=== PATIENT | female | born 1955 | race Caucasian/White ===

== ENCOUNTER → 2023-09-07 09:48 | Outpatient (REF) | payer MEDICARE, OTHER, SELFPAY | LOC: HWWDC 09:48 | PROVIDERS: ATTENDING PHYSICIAN Nurse Practitioner | DX: Z12.31 Encounter for screening mammogram for malignant neoplasm of breast (principal) | CPT/HCPCS: 77063; 77067 ==

== ENCOUNTER 2024-01-03 20:35 | Inpatient (IN) | payer MEDICARE, OTHER, SELFPAY ==
[2024-01-03] VITALS (7 sets, daily range): BP systolic 126–176; BP diastolic 58–84; BMI 30.4; BMI 30.3
[2024-01-03 18:12] LABS: % Basophils 0.2 % (0-2); % Eosinophils 0.7 % (0-6); % Immature Granulocytes 0.3 % (0-0.5); % Lymphocytes 17.3 % (20.5-51.1); % Monocytes 6.6 % (1.7-9.3); % Neutrophils 74.9 % (42.2-75.2); Absolute Eosinophils 0.1 10^3/uL (0-0.7); Absolute Lymphocytes 1.5 10^3/uL (1.2-3.4); Absolute Monocytes 0.6 10^3/uL (0.1-0.6); Absolute Neutrophils 6.4 10^3/uL (1.4-6.5); Hematocrit 34.3 % (37.0-47.0); Hemoglobin 11.7 g/dL (12.0-16.0); Mean Corp Hgb Conc. 34.1 g/dL (33.0-37.0); Mean Corpuscular Hgb 31.2 pg (27.0-31.0); Mean Corpuscular Volume 91.5 fL (81.0-99.0); Mean Platelet Volume 8.5 fL (7.4-10.4); Nucleated Red Blood Cells % 0 %; Platelet Count 285 10^3/uL (130-400); Red Blood Cell Count 3.75 10^6/uL (4.20-5.40); White Blood Cell Count 8.6 10^3/uL (4.8-10.8)
--- NOTE | 2024-01-03 19:19 | ED.GENMED ---
History of Present Illness
<Mamie Dc PA-C - Last Filed: 01/04/24 00:46>
General
Chief Complaint: Abnormal Lab Value
Source: patient
Exam Limitations: none
Time Seen by Provider: 01/03/24 18:50
Nursing documentation reviewed up to this point in time: agreed with
History of Present Illness
History of Present Illness:
Patient is a 68-year-old female presenting to the emergency department for evaluation of abnormal CT scan results in setting of 4 days left lower quadrant abdominal pain. Patient reports 4 days of lower abdominal discomfort. She also noticed some
darker urine and initially thought symptoms may be related to her urinary tract infection. Patient was started on ciprofloxacin by her primary care provider as the urine culture is pending. She has noted some loose stools, as well. Patient denies
any true dysuria, urinary frequency, or hematuria.
Patient denies any known fevers although has felt chilly. She describes a pressure type pain in her lower abdomen, worse on the left side. No nausea or vomiting. Patient was seen by her primary care provider who ordered an outpatient CT scan. CT
scan was performed today and patient was called regarding results telling her to come to the emergency department
Patient denies any prior diverticulitis in the past.
Patient denies any known drug allergies.
Review of Systems
<Mamie Dc PA-C - Last Filed: 01/04/24 00:46>
Review of Systems
Allergies reviewed?: Yes
All Other Systems: ROS reviewed and negative except as documented in HPI and ROS
Phy Exam
<Mamie Dc PA-C - Last Filed: 01/04/24 00:46>
Physical Exam
Physical Exam:
Vitals: Patient's vital signs are stable. Temp of 90 9.7F
General: Patient is in no acute distress. Nontoxic-appearing
Skin: Warm and dry, no rashes or lesions
Head: Normocephalic, atraumatic
Eyes: Sclera nonicteric. EOMs intact. No nystagmus.
Throat: Protecting airway
Neck: Normal ROM, no cervical spine tenderness, no meningismus
Cardiac: Regular rate and rhythm, no murmurs.
Pulm: Normal respiratory effort, no wheezes, rales, rhonchi heard on exam.
Abdomen: Abdomen soft. Moderate tenderness in right lower quadrant with voluntary guarding. No CVA tenderness
Extremities: No evidence of cyanosis or edema. Great distal pulses
Neuro: AAOx3. CN II-XII intact. No focal neurologic deficits.
Psychiatric: Normal affect.
Course
<Mamie Dc PA-C - Last Filed: 01/04/24 00:46>
Orders/Labs/Results
Orders:
Orders
01/03/24 18:01
CBC/With Diff [Complete Blood Count/With Diff] Urgent
01/03/24 19:20
Ketorolac [Toradol] 15 mg IV NOW STA
Piperacillin/Tazo 3.375 Gram [Zosyn] 3.375 gram in 50 ml IV NOW
01/03/24 19:40
Urinalysis Reflex To Culture Urgent
Date Specimen was Collected: 01/03/24
Time Specimen was Collected: 19:38
01/03/24 20:07
Admit/Transfer Patient As Directed
Co-Sign Provider:
Level of Care: Inpatient admission
Assign to:: Medical/Surgical
Physician / Group: roya
Diagnosis: diverticulitis
Reason for Hospitalization: diverticulitis
Expected length of stay greater than two midnights?: Yes
ELOS- Estimated Length of Stay in days: 3
I certify the patient meets the requirements for IP care: Yes
Code Status As Directed
Resuscitation Status: Full Code
PRN Pain Medication Management As Directed
May give lesser potent ordered pain med per pt: Yes
preference::
Protocol:: Medication orders for pain may be administered in a
manner that supports deferring to patient preference
when the pt is:
- Requesting an ordered lesser potent pain medication.
Least to most potent pain medications are defined
as: acetaminophen < NSAID < tramadol < opioids
(morphine, oxycodone, hydromorphone).
- Requesting a lesser dose of the same medication IF
ORDERED.
- Requesting a less intrusive route of administration
if both routes are prescribed by the provider (PO <
IV).
01/03/24 21:23
0.9% Sodium Chloride 1000 ml [Nss] 1,000 ml IV 80 mls/hr
Acetaminophen [Tylenol] 650 mg PO Q4HPRN PRN
Bisacodyl [Dulcolax] 10 mg RECTAL [id number] PRN
Docusate W/Senna [Senokot-S] 1 tablet PO BIDPRN PRN
HYDROmorphone [Dilaudid] 0.5 mg IV Q4HPRN PRN
Polyethylene Glycol Powder [Miralax] 17 grams PO DAILYPRN PRN
01/03/24 21:23
ColoRectal Surgery Consult Routine
Consulting Provider: Reynaldo Rolon
Was physician already notified: Yes
Activity As Directed
Activity Level: As Tolerated
Venous Foot Pumps As Directed
Location: Bilateral feet
Vital Signs As Directed
Frequency: Per unit guidelines
DX Deep Vein Thrombosis Video Routine
01/04/24 02:00
Piperacillin/Tazo 3.375 Gram [Zosyn] 3.375 gram in 50 ml IV Q6H
01/04/24 Breakfast
NPO
Allow oral meds: Yes
Allow clear liquids: No
Basic Metabolic Panel IN AM
Complete Blood Count/No Diff IN AM
01/05/24 06:00
Basic Metabolic Panel IN AM
Complete Blood Count/No Diff IN AM
01/06/24 06:00
Basic Metabolic Panel IN AM
Complete Blood Count/No Diff IN AM
01/07/24 06:00
Basic Metabolic Panel IN AM
Complete Blood Count/No Diff IN AM
01/08/24 06:00
Basic Metabolic Panel IN AM
Complete Blood Count/No Diff IN AM
Abnormal Lab Results
01/03/24 01/03/24
18:01 19:40
RBC 3.75 L 10^6/uL
(4.20-5.40)
Hgb 11.7 L g/dL
(12.0-16.0)
Hct 34.3 L %
(37.0-47.0)
MCH 31.2 H pg
(27.0-31.0)
Lymphocytes % 17.3 L %
(20.5-51.1)
Urine Ketones Trace A
(Negative)
01/03/24 18:01
Vital Signs
Initial and Last Documented VS:
Initial Vital Signs
Temp Pulse Resp BP Pulse Ox
99.7 F 86 18 176/84 96
01/03/24 17:51 01/03/24 17:51 01/03/24 17:51 01/03/24 17:51 01/03/24 17:51
Last Documented Vital Signs
Temp Pulse Resp BP Pulse Ox
98.3 F 69 16 126/58 94
01/03/24 23:30 01/03/24 23:30 01/03/24 23:30 01/03/24 23:30 01/03/24 23:30
<Rangel Simon MD - Last Filed: 01/03/24 20:11>
Orders/Labs/Results
Orders:
Orders
01/03/24 18:01
CBC/With Diff [Complete Blood Count/With Diff] Urgent
01/03/24 19:20
Ketorolac [Toradol] 15 mg IV NOW STA
Piperacillin/Tazo 3.375 Gram [Zosyn] 3.375 gram in 50 ml IV NOW
01/03/24 19:40
Urinalysis Reflex To Culture Urgent
Date Specimen was Collected: 01/03/24
Time Specimen was Collected: 19:38
01/03/24 20:07
Admit/Transfer Patient As Directed
Co-Sign Provider:
Level of Care: Inpatient admission
Assign to:: Medical/Surgical
Physician / Group: roya
Diagnosis: diverticulitis
Reason for Hospitalization: diverticulitis
Expected length of stay greater than two midnights?: Yes
ELOS- Estimated Length of Stay in days: 3
I certify the patient meets the requirements for IP care: Yes
Code Status As Directed
Resuscitation Status: Full Code
PRN Pain Medication Management As Directed
May give lesser potent ordered pain med per pt: Yes
preference::
Protocol:: Medication orders for pain may be administered in a
manner that supports deferring to patient preference
when the pt is:
- Requesting an ordered lesser potent pain medication.
Least to most potent pain medications are defined
as: acetaminophen < NSAID < tramadol < opioids
(morphine, oxycodone, hydromorphone).
- Requesting a lesser dose of the same medication IF
ORDERED.
- Requesting a less intrusive route of administration
if both routes are prescribed by the provider (PO <
IV).
01/03/24 21:23
0.9% Sodium Chloride 1000 ml [Nss] 1,000 ml IV 80 mls/hr
Acetaminophen [Tylenol] 650 mg PO Q4HPRN PRN
Bisacodyl [Dulcolax] 10 mg RECTAL [id number] PRN
Docusate W/Senna [Senokot-S] 1 tablet PO BIDPRN PRN
HYDROmorphone [Dilaudid] 0.5 mg IV Q4HPRN PRN
Polyethylene Glycol Powder [Miralax] 17 grams PO DAILYPRN PRN
01/03/24 21:23
ColoRectal Surgery Consult Routine
Consulting Provider: Reynaldo Rolon
Was physician already notified: Yes
Activity As Directed
Activity Level: As Tolerated
Venous Foot Pumps As Directed
Location: Bilateral feet
Vital Signs As Directed
Frequency: Per unit guidelines
DX Deep Vein Thrombosis Video Routine
01/04/24 02:00
Piperacillin/Tazo 3.375 Gram [Zosyn] 3.375 gram in 50 ml IV Q6H
01/04/24 Breakfast
NPO
Allow oral meds: Yes
Allow clear liquids: No
Basic Metabolic Panel IN AM
Complete Blood Count/No Diff IN AM
01/05/24 06:00
Basic Metabolic Panel IN AM
Complete Blood Count/No Diff IN AM
01/06/24 06:00
Basic Metabolic Panel IN AM
Complete Blood Count/No Diff IN AM
01/07/24 06:00
Basic Metabolic Panel IN AM
Complete Blood Count/No Diff IN AM
01/08/24 06:00
Basic Metabolic Panel IN AM
Complete Blood Count/No Diff IN AM
Abnormal Lab Results
01/03/24 01/03/24
18:01 19:40
RBC 3.75 L 10^6/uL
(4.20-5.40)
Hgb 11.7 L g/dL
(12.0-16.0)
Hct 34.3 L %
(37.0-47.0)
MCH 31.2 H pg
(27.0-31.0)
Lymphocytes % 17.3 L %
(20.5-51.1)
Urine Ketones Trace A
(Negative)
01/03/24 18:01
Vital Signs
Initial and Last Documented VS:
Initial Vital Signs
Temp Pulse Resp BP Pulse Ox
99.7 F 86 18 176/84 96
01/03/24 17:51 01/03/24 17:51 01/03/24 17:51 01/03/24 17:51 01/03/24 17:51
Last Documented Vital Signs
Temp Pulse Resp BP Pulse Ox
98.3 F 69 16 126/58 94
01/03/24 23:30 01/03/24 23:30 01/03/24 23:30 01/03/24 23:30 01/03/24 23:30
<Mamie Dc PA-C - Last Filed: 01/04/24 00:46>
MDM/Problems Addressed
Differential Diagnosis Includes:
Not limited to: Diverticulitis, complicated diverticulitis, bowel perforation, pericolonic abscess, UTI, pyelonephritis
MDM/Problems Addressed:
68-year-old female presenting with 4 days of lower abdominal discomfort and diarrhea with findings of complicated diverticulitis on outpatient CT scan today. Referred to emergency department. Patient denies any fever, chills, nausea or vomiting.
Hypertensive on arrival to emergency department, otherwise vital signs stable. Temp of 99.7. Patient is very well-appearing, in no apparent distress. She is nontoxic-appearing. She does have moderate tenderness in lower abdomen right > L with
voluntary guarding. No rebound tenderness. No rash or ecchymoses. Patient is perfusing well with great distal pulses. A CBC was initiated in triage which shows no clinically significant abnormalities. Patient does not have a leukocytosis. Mild
anemia with a hemoglobin of 11.7. I did review her basic metabolic which was obtained earlier today outpatient which shows no clinically significant abnormalities. CT report reviewed by me which shows a severe diverticulitis of the distal sigmoid
colon with a probable developing small pericolonic abscess. Given complicated nature of diverticulitis�patient will need to be admitted for IV antibiotics. Patient was given a dose of Toradol and started on Zosyn in the emergency department. Did
discuss case with hospitalist on-call who accepted to service. Case seen with attending physician.
Chronic conditions affecting care:
N/A
Acute Exacerbation and/or Progression of Chronic Illness:
N/A
<Mamie Dc PA-C - Last Filed: 01/04/24 00:46>
*Pulse Oximetry
Patient hypoxic: no
*EKG
Interpreted by ED Provider?: NA
*Automotive Service Assistant Interpretation
Rate: Automotive Service Assistant- N/A
*Critical Care Note
Total Time (30-74mins, 75-104mins- exclusive of procedures): Not Applicable
Data Reviewed
Review of Other/Old Records Reveals: Labs (BMP performed earlier today outpatient) and Radiology Studies (CT performed outpatient showing complicated diverticulitis)
Source: previous radiology exam
<Mamie Dc PA-C - Last Filed: 01/04/24 00:46>
Patient Management
Discussion with other providers: Hospitalist
Escalation/DeEscalation of care consider admission/obs:
Admit for IV antibiotics
ED Attending Note
<Mamie Dc PA-C - Last Filed: 01/04/24 00:46>
-
Portions of this chart may have been created with voice recognition software.� Occasional wrong word or��sound alike� substitutions may have occurred due to the inherent limitations of voice recognition software.
<Rangel Simon MD - Last Filed: 01/03/24 20:11>
ED Attending Note
Patient seen and examined by attending physician: Yes
ED Attending Note:
I have seen and evaluated the patient with a [id number] encounter. I have spoken to the advance practicer provider and involved in the medical history, the physical exam, medical decision making.
Evaluation and management service: agree unless noted differently below.
Results interpretation: agree unless noted differently below.
Focused HPI: 68-year-old female with history as documented presents to the emergency room after outpatient CT showed complicated diverticulitis. Patient reports she has have been having some abdominal discomfort since Sunday or Sunday; initially
she thought it was a UTI and saw her primary doctor on Sunday and was prescribed ciprofloxacin which she had been taking however symptoms continued to worsen and so she had a CT scan today and was called and told that it was positive for
complicated diverticulitis. Referred to the ER for evaluation. No fevers or chills. She says she has had some slightly loose stools. No vomiting. No other complaints.
Physical exam: Alert not in distress. Hypertensive but otherwise normal vitals. Abdomen soft, markedly tender left lower quadrant. Voluntary guarding.
Medical Decision Making: Presents for evaluation of abdominal pain�outpatient CT showed acute diverticulitis with adjacent small abscess. Labs sent off, started on IV Zosyn, will admit for continued management of acute complicated diverticulitis
worsening despite outpatient ciprofloxacin.
Discharge Plan
Departure
Patient Disposition: Admit
Date of Disposition: 01/03/24
Time of Disposition: 19:35
Presentation/result/management discussed w/ accepting MD/DO: Hospitalist
Discharge Problem:
Diverticulitis of sigmoid colon
Interventions
Interventions:
*Risk Screen - Suicide Last Done: 01/03/24 17:51
*General Assessment Last Done: 01/03/24 17:51
*Neglect/Abuse Screening Last Done: 01/03/24 17:51
ED- Fall Risk Assessment Last Done: 01/03/24 18:48
*ED COVID-19 Vaccine History Last Done: 01/03/24 18:48
*Nursing Disposition Last Done: 01/03/24 21:18
Discharge Date and Time
Discharge Date/Time: 01/03/24 21:19
--- NOTE | 2024-01-03 19:46 | HPS.HSE ---
Addendum entered and electronically signed by Sam Lepe DO 01/03/24 21:11:
Patient seen and examined independently. Agree with findings and plan as set forth by MITCHELL Tapia.
Patient is a 68y F with no significant PMH who presents to ED complaining of dysuria, abdominal bloating and lower abdominal pain x several days. Patient initially felt that burning symptoms were due to UTI. She received Rx for Cipro from her
PCP on Sunday. She began to feel worse (abd pain / bloating) and initially felt that Cipro might be responsible. With persistent symptoms she had outpatient imaging done today which shows sigmoid diverticulitis with small area of probable abscess.
Patient with no prior history of diverticulitis.
Ass:
Acute Sigmoid Diverticulitis
Plan:
Admit for further evaluation and treatment.
IV Zosyn.
Supportive care, pain control, etc.
Colorectal Surgery evaluation.
Original Note:
Family Physician
-
Family Physician: * NONE
Chief Complaint
-
abdominal pain
History of Present Illness
68-year-old female with PMH for osteoporosis presented to us with mid-left sided abdominal pain for past few days. patient stated intermittent shooting sharp pain. she started taking cipro BID since Sunday for possible UTI. UA was collected on
Sunday but never got result. she continued to have bloating, hard abdomen. she vomited once. denied constipation or diarrhea. CT ordered by PCP, with the impression of diverticulitis. she was sent to ER. denied fever. stated chills. denied ANDRADE,
dizzy or syncopal episode. denied dysuria or hematuria.
patient started on IV Zosyn. admitting for further management.
Medical History
Past Medical History
Past Medical History: Reports Other
Additional Past Medical History:
hld
UTI
TMJ syndrome
osteoporosis
Past Surgical History: Reports Other
Additional Past Surgical History:
left leg vein removal
appendectomy
left TKA
Social History
Tobacco: Non-smoker
Alcohol: None
Drug: None
Personal:
Living: With Family
Employment: Employed
Family History
Family History: Not pertinent
Allergies / Home Medications
Allergies reflects when Allergies were last updated in [facility].
Home Medications with original date entered in [facility]
Allergy/Medication List:
Allergies
Allergy/AdvReac Type Severity Reaction Status Date / Time
No Known Allergies Allergy Verified 02/16/22 10:30
Home Medications
alendronate 70 mg tablet 70 mg PO GUTIERREZ 01/03/24
ciprofloxacin HCl 500 mg tablet 500 mg PO BID 01/03/24
ibuprofen 600 mg tablet 600 mg PO Q6HPRN PRN mild pain 01/03/24
nitrofurantoin macrocrystal 50 mg capsule 50 mg PO DAILY 01/03/24
Review of Systems
-
Constitutional: Reports No Symptoms
EENT: Reports No Symptoms
Respiratory: Reports No Symptoms
Cardiac: Reports No Symptoms
Abdomen/GI: Reports Abdominal Pain
: Reports No Symptoms
Musculoskeletal: Reports No Symptoms
Skin: Reports No Symptoms
Neurological: Reports No Symptoms
Endocrine: Reports No Symptoms
Hematologic/Lymphatic: Reports No Symptoms
Psych: Reports No Symptoms
Physical Exam
Vital Signs
Vital Signs
Temp Pulse Resp BP Pulse Ox
99.7 F 86 18 157/73 98
01/03/24 17:51 01/03/24 17:51 01/03/24 17:51 01/03/24 18:52 01/03/24 18:53
Physical Exam
General: Well Developed, Well Nourished and No Apparent Distress
HEENT: NormoCephalic, Moist mucous membranes and Atraumatic
Respiratory: Clear
Cardiac: S1/S2 and Regular Rhythm; No Murmur or Rub
GI: Soft, Non Tender, Non Distended and Normal Bowel Sounds; No Organomegaly
Rectal: Deferred by Provider
Musculoskeletal: No Clubbing, No Cyanosis and No Edema
Skin: No Rash
Neuro: AO x 3 and Nonfocal/grossly intact
Psych: Calm
Laboratory Results
-
01/03/24 18:01
Data Reviewed
-
CT Scan: Report Reviewed by me
Lab Data: Labs Reviewed by me
Impression/Plan
-
# abdominal pain likely from sigmoid diverticulitis
-CT abdomen pelvis with Focal severe diverticulitis of the distal sigmoid colon with probable developing small pericolonic abscess.
-iv Zosyn continued
-Dilaudid prn for pain
-bowel rest
-fluids continued for hydration
-colorectal consulted
#DVT prophylaxis
-scd
#CODE status
-full code
[2024-01-03 19:47] LABS: Urine Albumin Negative (Neg - Trace); Urine Bilirubin Negative (Negative); Urine Character Clear (Clear); Urine Color Yellow; Urine Glucose Negative (Negative); Urine Ketone Trace (Negative); Urine Leukocyte Negative (Negative); Urine Nitrite Negative (Negative); Urine Occult Blood Negative (Negative); Urine Urobilinogen Negative (Neg - 1+)
[2024-01-03] MEDS: ZOSYN 50 IV (19:47)
[2024-01-03] MEDS: TORADOL 15 MG IV (19:47)
--- NOTE | 2024-01-03 21:30 | PTCARENOTE ---
Pt arrived to unit from ED and ambulated to stretcher from bed. Pt is AAOx3 with 8/10 pain throughout head and in LLQ. Pt oriented to room, call fuller within reach. BP on admission 163/72, HR 80. PRN Tylenol provided to pt.
[2024-01-03] MEDS: TYLENOL 650 MG PO (21:40)
[2024-01-03] MEDS: NSS 1000 IV (21:58)
[2024-01-04] MEDS: ZOSYN 50 IV ×4 (02:27→20:28)
[2024-01-04] MEDS: TYLENOL 650 MG PO ×3 (02:45→22:33)
[2024-01-04 07:15] VITALS: BP 130/53
[2024-01-04] MEDS: NSS 1000 IV ×2 (07:48→22:32)
[2024-01-04 08:15] LABS: Hematocrit 30.4 % (37.0-47.0); Hemoglobin 10.4 g/dL (12.0-16.0); Mean Corp Hgb Conc. 34.2 g/dL (33.0-37.0); Mean Corpuscular Volume 90.7 fL (81.0-99.0); Platelet Count 261 10^3/uL (130-400); Red Blood Cell Count 3.35 10^6/uL (4.20-5.40); White Blood Cell Count 6.2 10^3/uL (4.8-10.8)
[2024-01-04 08:55] LABS: Blood Urea Nitrogen 8 mg/dl (7-17); Calcium 8.4 mg/dl (8.4-10.2); Carbon Dioxide 25 mmol/L (22-30); Chloride 106 mmol/L (98-107); Estimated Creatinine Clearance 72 ml/min; Glucose 100 mg/dl (70-99); Potassium 3.9 mmol/L (3.5-5.1); Sodium 142 mmol/L (135-145); eGFR > 60.00
--- NOTE | 2024-01-04 10:56 | CON.CRS ---
Consultation
-
Date/Time Consultation Requested: 01/03/2024, 21:23
Date/Time Consultation Performed: 01/04/2024, 08:30
Requesting Provider: Katie De Dios
Performing Provider: Dhruv Rolon MD
Reason for Consultation: diverticulitis
Medical History
-
Chief Complaint: Abdominal pain
History of Present Illness:
68-year-old female presents to [facility] complaining of abdominal pain in the left lower quadrant for the past several days. The patient states she has never had diverticulitis before. She has not experienced any nausea or vomiting but
does have a headache. She was taking Cipro at home since Sunday ordered by her primary care physician for a possible UTI. She then underwent a CT which was also ordered by her primary care physician and was found to have diverticulitis. Given
this finding she was sent to the ER. She denies fevers or chills. Her bowel movements are constipated right now but she is regular. Her mother colon cancer 40s. Her last colonoscopy was in [address] Irene which showed diverticulosis in the
sigmoid colon and internal and external hemorrhoids. She was due in 2019. She underwent a Cologuard last year which was negative.
In the ER her WBC was 8.6. Today is 6.2. She has remained afebrile. She was started on IV antibiotics. CT of the abdomen and pelvis shows focal severe diverticulitis of the distal sigmoid colon with probable developing small pericolonic abscess.
We have been consulted for further surgical recommendations.
Past Medical History
Past Medical History: Hypercholesterolemia and Other (UTI, TMJ synrome, osteoporosis)
Past Surgical History: Appendectomy and Other (Left leg vein removal, appendectomy, left TKA)
Social History
Tobacco: Non-Smoker
Alcohol: None
Drug: None
Personal:
Family History
Family History: Reviewed & Not Pertinent
Allergies / Home Medications
Allergy/AdvReac Type Severity Reaction Status Date / Time
Sulfa (Sulfonamide AdvReac Mild Unknown Verified 01/03/24 21:44
Antibiotics)
�Medication �Instructions �Recorded �Confirmed �Type
alendronate 70 mg tablet 70 mg PO GUTIERREZ 01/03/24 01/03/24 History
ciprofloxacin HCl 500 mg tablet 500 mg PO BID 01/03/24 01/03/24 History
ibuprofen 600 mg tablet 600 mg PO Q6HPRN PRN mild pain 01/03/24 01/03/24 History
nitrofurantoin macrocrystal 50 mg 50 mg PO DAILY 01/03/24 01/03/24 History
capsule
Review of Systems
-
History Source: Patient
Abdomen/GI: Abdominal Pain and Constipated
A 10 point review of systems was completed, and was negative except as per HPI.
Physical Exam
Vital Signs
Temp 98.2 F 01/04/24 07:15
Pulse 61 01/04/24 07:15
Resp Rate 12 01/04/24 07:15
Blood pressure 130/53 01/04/24 07:15
SaO2 96 01/04/24 07:15
01/03/24 01/04/24 01/05/24
06:59 06:59 06:59
Actual Weight 75.041 kg
Body Mass Index (BMI) 30.3
Lab Results / Allergies
01/04/24 06:29
01/04/24 06:29
WBC 6.2 10^3/uL (4.8-10.8) 01/04/24 06:29
Hgb 10.4 g/dL (12.0-16.0) L 01/04/24 06:29
Hct 30.4 % (37.0-47.0) L 01/04/24 06:29
Plt Count 261 10^3/uL (130-400) 01/04/24 06:29
Abs Immat Gran (auto) 0.0 10^3/uL (0-0.05) 01/03/24 18:01
Neutrophils % 74.9 % (42.2-75.2) 01/03/24 18:01
Allergy/AdvReac Type Severity Reaction Status Date / Time
Sulfa (Sulfonamide AdvReac Mild Unknown Verified 01/03/24 21:44
Antibiotics)
Physical Exam
General: Well Developed, Well Nourished and No Apparent Distress
GI: Soft, Non Distended and Tender (Mild left lower quadrant)
Data Reviewed
-
CT Scan: Image Personally Visualized and interpreted and Report Reviewed by me
Labs: Labs Reviewed by me, Discussed with Physician and Discussed with Patient
Old Records: Reviewed
Assessment / Plan
-
Assessment: 68-year-old female with left lower quadrant pain found to have focal severe diverticulitis of the distal sigmoid colon with probable developing abscess. First attack.
Plan:
-No role for urgent surgery at this time
-Will need eventual colonoscopy as an outpatient. Will need to follow-up with Dr. Rolon in the office in 3 weeks of discharge to discuss.
-Continue IV antibiotics
-Full liquid diet
-Trend labs and vital signs with
-Will follow
--- NOTE | 2024-01-04 12:07 | W.PN.HOSP.TC ---
Today's Communication/Plan
-
advance to low residue likely in AM 01/04
cont IVF
cont IV zosyn
Assessment / Plan
Assessment / Plan
pt is a 68 year old female
abdominal pain likely from sigmoid diverticulitis--CT abdomen pelvis with Focal severe diverticulitis of the distal sigmoid colon with probable developing small pericolonic abscess--IV Zosyn continued-Dilaudid prn for pain--bowel rest--fulls--apprec
colorectal surgery
DVT prophylaxis-scd
CODE status-full code
Anticipated Discharge: Within 24 hours
Subjective/Interval History
-
Date of Service: January 04, 2024
pt feeling better--tolerating diet (fulls)
Objective Data
-
Labs:
Laboratory Results
01/04/24
06:29
WBC 6.2
Hgb 10.4 L
Hct 30.4 L
Plt Count 261
Sodium 142
Potassium 3.9
Chloride 106
Carbon Dioxide 25
BUN 8
Creatinine 0.7
Glucose 100 H
Calcium 8.4
Vital Signs:
max temp for 24 hours
01/03/24
17:51
Temp 99.7 F
Vital Signs
Temp Pulse Resp BP Pulse Ox
98.2 F 61 12 130/53 96
01/04/24 07:15 01/04/24 07:15 01/04/24 07:15 01/04/24 07:15 01/04/24 07:15
I&O
01/03/24 01/04/24 01/05/24
06:59 06:59 06:59
Intake Total 550 / 550
Balance 550 / 550
Review of Systems
-
All other systems: Reviewed and negative
Physical Exam
-
General: Well Developed, Well Nourished and No Apparent Distress
HEENT: Normocephalic and Atraumatic
Respiratory: Clear to Auscultation; Negative Wheezes or Rhonchi
Cardiac: Regular Rhythm, S1/S2 and Murmur
GI: Soft, Nontender, Nondistended and Normal Bowel Sounds
Musculoskeletal: No Clubbing, No Cyanosis and No Edema
Neuro: Awake and Alert
[2024-01-04 15:39] VITALS: BP 118/57
--- NOTE | 2024-01-04 16:35 | CM ---
b[employer] and del[employer] sales manager reviewed patient's chart and met with patient and patient lives with spouse in a multilevel home, patient is independent with adl's and ambulation, no dme, patient drives.
Pharmacy: [facility]
PCP: Dr. Vidal
Plan; Home with stable.
[2024-01-04 23:20] VITALS: BP 135/68
[2024-01-05] MEDS: ZOSYN 50 IV ×4 (01:58→19:16)
[2024-01-05 07:09] VITALS: BP 138/68
[2024-01-05 07:24] LABS: Hematocrit 30.6 % (37.0-47.0); Hemoglobin 10.4 g/dL (12.0-16.0); Mean Corpuscular Hgb 31.5 pg (27.0-31.0); Mean Corpuscular Volume 92.7 fL (81.0-99.0); Mean Platelet Volume 8.7 fL (7.4-10.4); Platelet Count 274 10^3/uL (130-400); White Blood Cell Count 3.9 10^3/uL (4.8-10.8)
[2024-01-05 07:40] LABS: Blood Urea Nitrogen 5 mg/dl (7-17); Calcium 8.7 mg/dl (8.4-10.2); Carbon Dioxide 24 mmol/L (22-30); Chloride 111 mmol/L (98-107); Estimated Creatinine Clearance 72 ml/min; Glucose 97 mg/dl (70-99); Sodium 144 mmol/L (135-145); eGFR > 60.00
[2024-01-05] MEDS: TYLENOL 650 MG PO (07:57)
--- NOTE | 2024-01-05 11:40 | W.PN.GS2 ---
Today's Communication / Plan
-
Advance diet
Continue antibiotics
Assessment / Plan
-
This is a 68-year-old female here with her first episode of diverticulitis. Hinchy 1, small pericolonic abscess, not amenable to drainage.
Will continue nonoperative management and plan for a 14-day course of antibiotics.
Will advance to a low residue diet which she will continue at home for another week or so.
She will follow-up with Dr. Rolon and will need an outpatient colonoscopy, timing TBD.
If she tolerates her food well, consider discharge later tonight versus early tomorrow.
Patient agreeable to plan of care above, all questions answered.
We will continue to follow
Time Spent
Total Time Spent with Patient (in minutes): 20
Subjective Data
-
Date of Service: January 05, 2024
Interval Events:
No acute events overnight. Slept well. Pain improved. Denies Nausea/Vomiting, +bowel function. Tolerating diet.
Objective Data
-
Intake and Output
01/04/24 01/05/24 01/06/24
06:59 06:59 06:59
Intake Total 550 / 550 2700 / 2700
Balance 550 / 550 2700 / 2700
Intake:
Oral fluids 1800 / 1800
IV fluids (Total) 500 / 500 800 / 800
IV piggybacks 50 / 50 100 / 100
Other:
Number of approximated MODERATE 1 3
amounts of urine
Vital Signs
Temp Pulse Resp BP Pulse Ox
98.4 F 69 22 138/68 96
01/05/24 07:09 01/05/24 07:09 01/05/24 07:09 01/05/24 07:09 01/05/24 07:09
Lab Results
01/05/24 06:10
01/05/24 06:10
Calcium 8.7 mg/dl (8.4-10.2) 01/05/24 06:10
Physical Exam
-
GENERAL/NEURO: Awake, Alert, no distress
CHEST: Unlabored breathing on RA
ABDOMEN: Soft, obese, nondistended, minimally tender in the left lower quadrant.
[2024-01-05] MEDS: NSS 1000 IV (11:58)
--- NOTE | 2024-01-05 12:52 | PTCARENOTE ---
Patient tolerated 100% of Low residue diet. Patient ambulating in room with a steady gait. Patient c/o pressure in B/L lower quadrants, denies need for pain medication.
--- NOTE | 2024-01-05 14:07 | W.PN.HOSP.TC ---
Today's Communication/Plan
-
DC planning
Assessment / Plan
Assessment / Plan
pt is a 68 year old female
abdominal pain likely from sigmoid diverticulitis--CT abdomen pelvis with Focal severe diverticulitis of the distal sigmoid colon with probable developing small pericolonic abscess which is not amenable to drainage- Afeb and improved pain.
Tolerating solid diet. CRS input noted .
As pt is improving and tolerating diet will plan for dc later today after dinner.
Will switch to oral Augmentin to finish a 14 day course of abx
Pt to follow with CRS as OP
DVT prophylaxis-scd
CODE status-full code
Anticipated Discharge: Today
Subjective/Interval History
-
Date of Service: January 05, 2024
Improved abdominal pain.
Tolerating solid diet so far without nausea vomiting. No worsening of abdominal pain.
Had a bowel movement. No fever or chills.
Objective Data
-
Labs:
Laboratory Results
01/05/24
06:10
WBC 3.9 L
Hgb 10.4 L
Hct 30.6 L
Plt Count 274
Sodium 144
Potassium 4.0
Chloride 111 H
Carbon Dioxide 24
BUN 5 L
Creatinine 0.7
Glucose 97
Calcium 8.7
Vital Signs:
Vital Signs
Temp Pulse Resp BP Pulse Ox
98.4 F 69 22 138/68 96
01/05/24 07:09 01/05/24 07:09 01/05/24 07:09 01/05/24 07:09 01/05/24 07:09
I&O
01/04/24 01/05/24 01/06/24
06:59 06:59 06:59
Intake Total 550 / 550 2700 / 2700
Balance 550 / 550 2700 / 2700
Review of Systems
-
EENT: Denies Sore Throat
Respiratory: Denies Cough or Trouble Breathing
Cardiac: Denies Chest Pain
Neuro: Denies Dizzy
Physical Exam
-
General: No Apparent Distress
HEENT: Moist Mucous Membranes
Respiratory: Clear to Auscultation
Cardiac: Regular Rhythm and S1/S2
GI: Soft, Nondistended, Normal Bowel Sounds and Tender (mild abdo in LLQ but no rebound or guarding ;per pt much improved.)
Neuro: AO x 3
Psych: Calm
Data Reviewed
-
Labs: Labs Reviewed by me
--- NOTE | 2024-01-05 14:14 | W.DS.TRANS ---
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
-
Discharge Instructions:
Discharge Diagnosis/Procedures Focal severe diverticulitis distal sigmoid colon
with problem-solving small paracolic abscess
Diet Low Fiber
Additional Diets low fiber for the next 2-3 weeks. once recovered
from this episode, you will need to be on a
high fiber diet
Activity As tolerated
Driving Restrictions As prior to admission
Bathing Restrictions None
Instructions: Low Fiber Diet
Stand-Alone Forms:
Changes to Home Medications: Yes
Discharge Medications:
DC Medications w/original date entered in [facility] [employer]
alendronate 70 mg tablet 70 mg PO GUTIERREZ 01/03/24
ibuprofen 600 mg tablet 600 mg PO Q6HPRN PRN mild pain 01/03/24
nitrofurantoin macrocrystal 50 mg capsule 50 mg PO DAILY 01/03/24
acetaminophen 325 mg tablet 650 mg (2 x 325 mg) PO Q4HPRN PRN mild pain/ANDRADE/temp> 100.4F #1 tab 01/05/24
amoxicillin 875 mg-potassium clavulanate 125 mg tablet 1 tab PO BID #24 tabs 01/05/24
Home Medication Changes
New med - Augmentin
Pending Results: No
--- NOTE | 2024-01-05 14:33 | CM ---
Patient seen bedside, reports no needs to CM upon discharge. IMM reviewed, signed, placed in chart. Patient reports her will provide transportation home. CM will continue to follow for all discharge planning needs.
Plan; home no needs.
[2024-01-05 15:39] VITALS: BP 152/66
[2024-01-05 19:53] VITALS: BP 141/76
--- NOTE | 2024-01-05 19:56 | PTCARENOTE ---
Pt IV removed and pt d/c'd home with all belongings, with spouse.
== END 2024-01-05 19:57 | disposition home or self-care (01) | DRG 392 ==
LOC: 4 WEST ACU 20:35
PROVIDERS: Emergency Medicine; Physician Assistant; Registered Nurse; ADMITTING PHYSICIAN Hospitalist; ATTENDING PHYSICIAN Internal Medicine; CONSULT PHYSICIAN Surgery; EMERGENCY PHYSICIAN Emergency Medicine
DX: K57.20 Diverticulitis of large intestine with perforation and abscess without bleeding (principal); E78.00 Pure hypercholesterolemia, unspecified; K59.00 Constipation, unspecified; M81.0 Age-related osteoporosis without current pathological fracture; K57.30 Diverticulosis of large intestine without perforation or abscess without bleeding; K64.4 Residual hemorrhoidal skin tags; K64.8 Other hemorrhoids; Z96.652 Presence of left artificial knee joint; Z79.83 Long term (current) use of bisphosphonates; Z79.899 Other long term (current) drug therapy; Z80.0 Family history of malignant neoplasm of digestive organs
CPT/HCPCS: 36415; 74177; 80048; 81003; 85025; 85027; 96365; 96375; 99284; Q9967

== ENCOUNTER → 2024-02-04 10:18 | Outpatient (REF) | payer MEDICARE, OTHER, SELFPAY | LOC: HWRAD 10:18 | PROVIDERS: ATTENDING PHYSICIAN Surgery; FAMILY PHYSICIAN Nurse Practitioner | DX: K57.32 Diverticulitis of large intestine without perforation or abscess without bleeding (principal) | CPT/HCPCS: 74177; Q9967 ==

== ENCOUNTER → 2024-03-11 06:37 | Day surgery (SDC) | payer MEDICARE, OTHER, SELFPAY | LOC: GI 06:37 | PROVIDERS: ATTENDING PHYSICIAN Surgery | DX: Z12.11 Encounter for screening for malignant neoplasm of colon (principal); Z80.0 Family history of malignant neoplasm of digestive organs; K57.30 Diverticulosis of large intestine without perforation or abscess without bleeding | CPT/HCPCS: G0105 ==

== ENCOUNTER → 2025-03-09 11:09 | Outpatient (REF) | payer MEDICARE, OTHER, SELFPAY | LOC: HWWDC 11:09 | PROVIDERS: ATTENDING PHYSICIAN Obstetrics & Gynecology Gynecology; FAMILY PHYSICIAN Nurse Practitioner | DX: Z12.31 Encounter for screening mammogram for malignant neoplasm of breast (principal) | CPT/HCPCS: 77063; 77067 ==

== ENCOUNTER → 2025-04-27 13:00 | Outpatient (REF) | payer MEDICARE, OTHER, SELFPAY ==
[2025-04-27 14:36] LABS: Blood Urea Nitrogen 14 mg/dl (7-17); Calcium 9.5 mg/dl (8.4-10.2); Carbon Dioxide 29 mmol/L (22-30); Chloride 104 mmol/L (98-107); Glucose 107 mg/dl (70-99); Potassium 4.1 mmol/L (3.5-5.1); Sodium 140 mmol/L (135-145); eGFR > 60.00
== END ==
LOC: REG 13:00
PROVIDERS: ATTENDING PHYSICIAN Surgery
DX: Z87.19 Personal history of other diseases of the digestive system (principal)
CPT/HCPCS: 36415; 80048

== ENCOUNTER → 2025-04-28 09:26 | Outpatient (REF) | payer MEDICARE, OTHER, SELFPAY | LOC: RAD 09:26 | PROVIDERS: ATTENDING PHYSICIAN Surgery; FAMILY PHYSICIAN Internal Medicine | DX: Z87.19 Personal history of other diseases of the digestive system (principal) | CPT/HCPCS: 74177; Q9967 ==